=== PATIENT | male | born 1955 | race Caucasian/White ===

== ENCOUNTER 2020-06-17 11:31 | Emergency (ER) | payer OTHER ==
[2020-06-17] MEDS ORDERED: KETOROLAC TROMETHAMINE INJ/PF 30 MG/1 ML SDV IV ONE (11:59)
[2020-06-17] MEDS ORDERED: MORPHINE SULFATE 10 MG/ML INJ IV ONE (11:59)
[2020-06-17] MEDS ORDERED: ONDANSETRON 4 MG TAB.RAPDIS PO ONE (11:59)
[2020-06-17] MEDS ORDERED: NORMAL SALINE 1000 ML 1,000 ML IV ONE (12:25)
[2020-06-17 12:45] LABS: ABSOLUTE LYMPHOCYTES (AUTO) 0.6 10^3/uL (0.5-4.7); ABSOLUTE MONOCYTES (AUTO) 0.4 10^3/uL (0.1-1.4); ABSOLUTE NEUT (AUTO) 4.8 10^3/uL (1.7-8.2); BASOPHILS % (AUTO) 0.5 % (0-2); EOSINOPHILS % (AUTO) 0.1 % (0-6); HEMATOCRIT 43.6 % (37.9-51.0); HEMOGLOBIN 14.9 g/dL (13.5-17.0); LYMPHOCYTES % (AUTO) 9.6 % (13-45); MEAN CORPUSCULAR HEMOGLOBIN 30.6 pg (27.0-33.4); MEAN CORPUSCULAR HGB CONC 34.3 g/dL (32.0-36.0); MEAN CORPUSCULAR VOLUME 89 fl (80-97); MONOCYTES % (AUTO) 6.8 % (3-13); PLATELET COUNT 127 10^3/uL (150-450); RED BLOOD COUNT 4.88 10^6/uL (4.35-5.55); RED CELL DISTRIBUTION WIDTH 13.7 % (11.5-14.0); TOTAL CELLS COUNTED % (AUTO) 100 %; WHITE BLOOD COUNT 5.8 10^3/uL (4.0-10.5)
[2020-06-17 13:04] LABS: ALKALINE PHOSPHATASE 60 U/L (38-126); ANION GAP 10 (5-19); ASPARTATE AMINO TRANSFERASE 46 U/L (17-59); BILIRUBIN,DIRECT 0.3 mg/dL (0.0-0.4); BILIRUBIN,TOTAL 0.7 mg/dL (0.2-1.3); BLOOD UREA NITROGEN 20 mg/dL (7-20); CALCIUM 8.7 mg/dL (8.4-10.2); CARBON DIOXIDE 23 mmol/L (22-30); CHLORIDE 99 mmol/L (98-107); GLUCOSE 110 mg/dL (75-110); POTASSIUM 4.7 mmol/L (3.6-5.0); TOTAL PROTEIN 6.4 g/dL (6.3-8.2)
[2020-06-17 13:35] LABS: APPEARANCE,URINE CLEAR; BILIRUBIN,URINE NEGATIVE (NEGATIVE); COLOR,URINE YELLOW; GLUCOSE, URINE NEGATIVE (NEGATIVE); KETONES,URINE NEGATIVE (NEGATIVE); PROTEIN,URINE NEGATIVE (NEGATIVE); UROBILINOGEN,URINE NEGATIVE mg/dL (<2.0)
--- NOTE | 2020-06-17 14:18 | RADIOLOGY REPORT (SQ) ---
EXAM DESCRIPTION: CT ABD/PELVIS WITH IV ONLY IMAGES COMPLETED DATE/TIME: 06/17/2020 1:42 pm REASON FOR STUDY: lbp COMPARISON: None. TECHNIQUE: CT scan of the abdomen and pelvis performed using helical scanning technique with dynamic intravenous contrast injection. No oral contrast. Images reviewed with lung, soft tissue, and bone windows. Reconstructed coronal and sagittal MPR images reviewed. Delayed images for evaluation of the urinary system also acquired. All images stored on PACS. All CT scanners at this facility use dose modulation, iterative reconstruction, and/or weight based d osing when appropriate to reduce radiation dose to as low as reasonably achievable (ALARA). [facility]: Dose Right [facility]: CareDose [facility]: Dose Right [facility]: Teradose 4D [facility]: [employer] CONTRAST TYPE AND DOSE: Contrast/concentration: Isovue 350.00 mmol/ml; Total Contrast Delivered: 100 .0 ml; Total Saline Delivered: 72.0 ml RENAL FUNCTION: Creatinine 1.13 milligrams/deciliter. RADIATION DOSE: CT Rad equipment meets quality standard of care and radiation dose reduction techniq ues were employed. CTDIvol: NaN mGy. DLP: 0 mGy-cm. LIMITATIONS: None. FINDINGS: LOWER CHEST: No acute findings. LIVER: The relative hypoattenuation of the hepatic parenchyma compared to the splenic parenchyma on t he portal venous phase is suggestive of underlying hepatic steatosis. There is a 2.1 x 1.7 cm hypode nse lesion in the hepatic dome (image 9 of series 3) that is isodense to the hepatic parenchyma on th e delayed phase. The portal veins are patent. SPLEEN: No splenomegaly or splenic mass. PANCREAS: No acute gross abnormality of the pancreas. GALLBLADDER: No abnormality that is apparent on CT. ADRENAL GLANDS: No mass or asymmetry. RIGHT KIDNEY AND URETER: No solid mass, hydronephrosis, nephrolithiasis, hydroureter or ureterolithi asis. LEFT KIDNEY AND URETER: The subcentimeter hypodense lesions in the upper and lower poles of the kidne ys are considered too small to characterize. There is no hydronephrosis, nephrolithiasis, hydrourete r or ureterolithiasis. AORTA AND VESSELS: No aneurysm of the abdominal aorta. The abdominopelvic vasculature is patent. RETROPERITONEUM: No retroperitoneal adenopathy, hemorrhage or mass. BOWEL AND PERITONEAL CAVITY: Colonic diverticulosis without diverticulitis. There is no bowel obstru ction, bowel wall thickening or pericolonic/ perienteric inflammation. There is no mesenteric adenop athy, free intraperitoneal fluid or mesenteric/ omental inflammation. APPENDIX: Normal. PELVIS: No abnormality of the urinary bladder. The prostate gland measures 4.9 cm in transverse diam eter. ABDOMINAL WALL: No abdominal wall mass or hernia. BONES: Degenerative spondylosis and facet arthropathy of the lumbar spine. OTHER: No other finding. IMPRESSION: 1. No acute intra-abdominal abnormality. 2. 2.1 x 1.1 cm hypodense lesion in hepatic dome (image 9 of series 3) that is isodense of hepatic p arenchyma on the delayed phase. Consider further evaluation of the lesion with a non-emergent contra st-enhanced liver protocol MRI or CT. 3. Colonic diverticulosis without diverticulitis. 4. Hepatic steatosis. TECHNICAL DOCUMENTATION: JOB ID: [id number] Quality ID # [id number]: Final reports with documentation of one or more dose reduction techniques (e.g., Au tomated exposure control, adjustment of the mA and/or kV according to patient size, use of iterative reconstruction technique) 2010 [employer]- All Rights Reserved Reading location - IP/workstation name: [email or web address]
[2020-06-17 14:48] VITALS: BP 142/70
--- NOTE | 2020-06-17 14:49 | ER Document Report ---
ED General - General Chief Complaint: Low Back Pain Stated Complaint: CHILLS,BACK PAIN Time Seen by Provider: 06/17/20 11:48 Mode of Arrival: Ambulatory Information source: Patient - HPI Notes: Patient comes in complaining of bilateral lower back pain. He states when he went to bed he felt fine when he woke up he had this severe pain. The made it better or worse. It was sharp. It radiated across both sides of his back.. It was constant. He denies any trouble with stool or urine. No fevers. No vomiting. He denies previous history of similar pain. No history of kidney stones. He states he is here visiting from [place]. - Related Data Allergies/Adverse Reactions: No Known Allergies Allergy (Unverified 06/17/20 12:08) Past Medical History - General Information source: Patient - Social History Smoking Status: Current Every Day Smoker Frequency of alcohol use: Occasional Drug Abuse: None Family History: Reviewed & Not Pertinent Pulmonary Medical History: Reports: Hx COPD Past Surgical History: Reports: Hx Orthopedic Surgery - spinal disk removal Review of Systems - Review of Systems Constitutional: denies: Chills, Fever Cardiovascular: denies: Chest pain, Palpitations Respiratory: denies: Cough, Short of breath -: Yes All other systems reviewed and negative Physical Exam - Vital signs Vitals: Temp Pulse Resp BP Pulse Ox 99.8 F 85 18 152/70 H 97 06/17/20 11:44 06/17/20 11:44 06/17/20 11:44 06/17/20 11:44 06/17/20 11:44 Interpretation: Hypertensive - General General appearance: Appears well, Alert - HEENT Head: Normocephalic, Atraumatic Eyes: Normal Pupils: PERRL - Respiratory Respiratory status: No respiratory distress Chest status: Nontender Breath sounds: Normal Chest palpation: Normal - Cardiovascular Rhythm: Regular Heart sounds: Normal auscultation Murmur: No - Abdominal Inspection: Normal Distension: No distension Bowel sounds: Normal Tenderness: Nontender Organomegaly: No organomegaly - Back Back: Normal, Nontender - Extremities General upper extremity: Normal inspection, Nontender, Normal color, Normal ROM, Normal temperature General lower extremity: Normal inspection, Nontender, Normal color, Normal ROM, Normal temperature, Normal weight bearing. No: Cassie's sign - Neurological Neuro grossly intact: Yes Cognition: Normal Orientation: AAOx4 Margaret Coma Scale Eye Opening: Spontaneous Chilton Coma Scale Verbal: Oriented Margaret Coma Scale Motor: Obeys Commands Margaret Coma Scale Total: 15 Speech: Normal Motor strength normal: LUE, RUE, LLE, RLE Sensory: Normal - Psychological Associated symptoms: Normal affect, Normal mood - Skin Skin Temperature: Warm Skin Moisture: Dry Skin Color: Normal Course - Re-evaluation Re-evalutation: 06/17/20 14:46 Patient presents with bilateral low back pain. He states now at approximately 2:45 PM that it is better and he feels back to his normal state of health. He does have some blood in his urine which seems that he may have passed a kidney stone. CT scan does not show any evidence of a kidney stone but is possible patient passed. There is no other significant findings on labs or imaging to explain the patient's pain. His vital signs are stable and he is nontoxic- appearing. I did discuss the liver lesion that was seen on CT scan with the patient. And have provided him with guidance about appropriate follow-up for this lesion. - Vital Signs Vital signs: Temp Pulse Resp BP Pulse Ox 98.7 F 88 16 142/70 H 100 06/17/20 14:48 06/17/20 14:48 06/17/20 14:48 06/17/20 14:48 06/17/20 14:48 - Laboratory Result Diagrams: 06/17/20 12:35 06/17/20 12:35 Laboratory results interpreted by me: 06/17/20 06/17/20 06/17/20 12:35 12:35 13:15 Plt Count 127 L Lymph % (Auto) 9.6 L Seg Neutrophils % 83.0 H Sodium 131.5 L Urine Blood MODERATE H - Diagnostic Test Radiology reviewed: Image reviewed, Reports reviewed Discharge - Discharge Clinical Impression: Low back pain Qualifiers: Chronicity: acute Back pain laterality: bilateral Sciatica presence: without sciatica Qualified Code(s): M54.5 - Low back pain Hematuria Qualifiers: Hematuria type: other microscopic Qualified Code(s): R31.29 - Other microscopic hematuria Condition: Stable Disposition: HOME, SELF-CARE Instructions: Hematuria ([facility]), Low Back Pain ([facility]) Additional Instructions: There was a lesion seen on your liver on the CAT scan. You will require further testing to evaluate this lesion. Please discuss this with your family physician as soon as possible. Please tell your family physician that you need a liver protocol CAT scan or a liver protocol MRI.
== END 2020-06-17 14:54 | disposition home or self-care (01) ==
LOC: ER 11:31
DX: R31.29 Other microscopic hematuria (principal); M54.5 Low back pain; M54.9 Dorsalgia, unspecified; F17.200 Nicotine dependence, unspecified, uncomplicated
CPT/HCPCS: 99285; 96361; 96374; 96375; 36415; 85025; 80053; 81001; 74177; A9270; J1885; J2270; J7030; S0119

== ENCOUNTER 2020-06-17 23:52 | Emergency (ER) | payer OTHER ==
[2020-06-18] MEDS ORDERED: ACETAMINOPHEN 325 MG TABLET PO ONE ×2 (01:12→07:14)
[2020-06-18] MEDS ORDERED: MORPHINE SULFATE 10 MG/ML INJ IV ONE (01:13)
[2020-06-18] MEDS ORDERED: ONDANSETRON HCL INJ/PF 4 MG/2 ML SDV IV ONE (01:14)
[2020-06-18] MEDS ORDERED: NORMAL SALINE 1000 ML 1,000 ML IV ONE ×3 (01:14→08:10)
[2020-06-18 01:22] LABS: VENOUS BLOOD BASE EXCESS -1.7 mmol/L; VENOUS BLOOD HCO3 24.4 mmol/L (20-32); VENOUS BLOOD PCO2 46.3 mmHg (35-63); VENOUS BLOOD PH 7.34 (7.30-7.42)
[2020-06-18 01:25] LABS: ABSOLUTE LYMPHOCYTES (AUTO) 0.6 10^3/uL (0.5-4.7); ABSOLUTE MONOCYTES (AUTO) 0.4 10^3/uL (0.1-1.4); ABSOLUTE NEUT (AUTO) 5.5 10^3/uL (1.7-8.2); BASOPHILS % (AUTO) 0.5 % (0-2); HEMATOCRIT 43.7 % (37.9-51.0); HEMOGLOBIN 15.2 g/dL (13.5-17.0); LYMPHOCYTES % (AUTO) 9.2 % (13-45); MEAN CORPUSCULAR HEMOGLOBIN 31.4 pg (27.0-33.4); MEAN CORPUSCULAR HGB CONC 34.8 g/dL (32.0-36.0); MEAN CORPUSCULAR VOLUME 90 fl (80-97); MONOCYTES % (AUTO) 6.1 % (3-13); PLATELET COUNT 131 10^3/uL (150-450); RED BLOOD COUNT 4.85 10^6/uL (4.35-5.55); RED CELL DISTRIBUTION WIDTH 13.5 % (11.5-14.0); SEGMENTED NEUTROPHILS % (AUTO) 84.2 % (42-78); TOTAL CELLS COUNTED % (AUTO) 100 %; WHITE BLOOD COUNT 6.5 10^3/uL (4.0-10.5)
--- NOTE | 2020-06-18 01:30 | ER Document Report ---
ED General <AKUSHIK HUI - Last Filed: 06/18/20 07:16> <JACKIE PEÑA - Last Filed: 06/18/20 09:58> - General Chief Complaint: Back Pain Stated Complaint: BACK AND LEG PAIN Time Seen by Provider: 06/18/20 01:02 Notes: Patient is a 65-year-old male that comes emergency department for chief complaint of sharp pain in his lower back that radiates into his hamstrings. He states that he woke up this morning with severe pain although he started noticing pain developing before he went to bed last night. Patient denies fever but reports some chills, on arrival he was found to have a fever 102.3 F. Patient does have a cough but he states he "thought it was normal because it is a smoker's cough". Patient denies injury to his back, nausea, vomiting, abdominal pain, incontinence, or numbness. He denies history of IV drug abuse. He does have a history of lumbar discectomy in his lower back years ago after herniated discs, has a history of COPD, continues to smoke daily, denies any past medical history otherwise. He does report he is visiting here from [place], denies any sick contacts. (KAUSHIK HUI) - Related Data Allergies/Adverse Reactions: No Known Allergies Allergy (Unverified 06/17/20 12:08) Past Medical History - General Information source: Patient - Social History Smoking Status: Current Every Day Smoker Frequency of alcohol use: None Drug Abuse: None Lives with: Alone Family History: Reviewed & Not Pertinent Patient has homicidal ideation: No Pulmonary Medical History: Reports: Hx COPD Past Surgical History: Reports: Hx Orthopedic Surgery - spinal disk removal - Immunizations Hx Diphtheria, Pertussis, Tetanus Vaccination: Yes <KAUSHIK HUI - Last Filed: 06/18/20 07:16> Review of Systems - Review of Systems Constitutional: See HPI EENT: No symptoms reported Cardiovascular: No symptoms reported Respiratory: See HPI Gastrointestinal: No symptoms reported Genitourinary: No symptoms reported Male Genitourinary: No symptoms reported Musculoskeletal: See HPI Skin: No symptoms reported Hematologic/Lymphatic: No symptoms reported Neurological/Psychological: No symptoms reported <KAUSHIK HUI - Last Filed: 06/18/20 07:16> Physical Exam <KAUSHIK HUI - Last Filed: 06/18/20 07:16> - Vital signs Vitals: Temp Pulse Resp BP Pulse Ox 102.3 F H 81 22 H 131/56 H 96 06/18/20 00:06 06/18/20 00:06 06/18/20 00:06 06/18/20 00:06 06/18/20 00:06 - Notes Notes: GENERAL: Alert and interactive, somewhat ill-appearing, flushed and mildly diaphoretic HEAD: Normocephalic, atraumatic. EYES: Pupils equal, round, and reactive to light. Extraocular movements intact. ENT: Oral mucosa moist, tongue midline. Oropharynx unremarkable. Airway patent. NECK: Full range of motion. Supple. Trachea midline. No lymphadenopathy. LUNGS: Slightly decreased breath sounds bilaterally, coarse breath sounds throughout, however patient is not wheezing, speaks in full sentences, no signs of respiratory distress. HEART: Regular rate and rhythm. No murmur ABDOMEN: Soft, non-tender. Non-distended. GENITOURINARY: No swelling, tenderness, or concerning findings EXTREMITIES: Moves all 4 extremities spontaneously. No edema, normal radial and dorsalis pedis pulses bilaterally. No cyanosis. BACK: Patient has generalized tenderness over the lower back, difficult to evaluate because I cannot get patient in a good position to do so, patient has severe pain with any movement of his legs and with any movement of his back. Normal distal neurovascular exam, no saddle anesthesia, no obvious signs of trauma. NEUROLOGICAL: Alert and oriented x3. Normal speech. Cranial nerves II through XII grossly intact. Strength 5/5 in all extremities. PSYCH: Normal affect, normal mood. SKIN: Flushed and mildly diaphoretic (KAUSHIK HUI) Course - Laboratory Result Diagrams: 06/18/20 01:02 06/18/20 01:02 <KAUSHIK HUI - Last Filed: 06/18/20 07:16> - Laboratory Result Diagrams: 06/18/20 01:02 06/18/20 01:02 <JACKIE PEÑA - Last Filed: 06/18/20 09:58> - Re-evaluation Re-evalutation: On exam patient is alert and cooperative but with any movement whatsoever including trying to flex the back, trying to lift or bend his legs, or trying to change position patient appears to have intense pain that makes him pale. In addition to this patient is febrile. Patient was evaluated earlier and had a CT that was negative, had negative laboratory work-up for the most part, no acute findings. Patient does not have a history of IV drug abuse, he has no evidence of IV injection sites on exam. Patient does not have any symptoms or physical exam findings suggesting spinal cord compression. However based on his exam alone and based on his history of discectomy in the past I am concerned that patient has discitis on initial impression. Patient will be treated for fever, medicated for pain, placed on monitor, and have full septic work-up including added ESR and CRP. CBC unremarkable, ESR is not elevated, chemistry nonspecific with mildly elevated creatinine and LFTs. CRP is very elevated at greater than 140. Lactic is unremarkable, venous blood gas unremarkable, blood and urine cultures are pending. On reevaluation patient still has a very significant discomfort, will give additional pain medication. We do not have MRI at this time but we will in the morning, I discussed with patient, I discussed my concern, patient will be covered with broad-spectrum antibiotics and MRI will be placed to be performed in several hours in the morning. Patient states appreciation and agreement. I discussed case with Dr. Desir. 06/18/20 05:40 Patient reevaluated, he is much more comfortable after the second pain medication dose, he states he is reasonably comfortable at this time although his back still hurts. 06/18/20 07:16 On reevaluation patient noted to be having shaking chills although his temperature has not changed. He is now mildly tachycardic. Remedicated with Tylenol and fentanyl. Afterwards he will will be able to go over the MRI, spoke with ultrasound technician. (KAUSHIK HUI) 06/18/20 09:52 MRI results are unremarkable. I discussed this with Dr. Mcginnis. I then reevaluated the patient and asked him if he had dysuria. He said that he did. I suspect that he has a urinary tract infection. He does have a large amount of blood in his urine. Urine culture has been sent. Patient states that he will follow-up with his primary care provider in [place]. Since the patient is from [place], he will be tested for COVID-19. The patient was evaluated during the global COVID-19 pandemic and that diagnosis was suspected/considered upon their initial presentation. Their evaluation, treatment and testing was consistent with current guidelines for patients who present with complaints or symptoms that may be related to COVID-19. Follow-up precautions were given. Verbal discharge instructions were given to the patient. They verbalized u nderstanding. They are stable for discharge. (JACKIE PEÑA) - Vital Signs Vital signs: Temp Pulse Resp BP Pulse Ox 98.3 F 67 21 H 126/65 H 93 06/18/20 08:00 06/18/20 06:44 06/18/20 09:01 06/18/20 09:00 06/18/20 09:01 - Laboratory Laboratory results interpreted by me: 06/18/20 06/18/20 06/18/20 01:02 01:02 02:54 Plt Count 131 L Lymph % (Auto) 9.2 L Seg Neutrophils % 84.2 H Sodium 133.3 L Chloride 97 L Creatinine 1.26 H Est GFR (MDRD) Non-Af 58 L Direct Bilirubin 0.5 H AST 136 H ALT 57 H C-Reactive Protein 141.2 H Urine Protein 30 H Urine Ketones TRACE H Urine Blood LARGE H - EKG Interpretation by Me Additional EKG results interpreted by me: EKG shows sinus rhythm at a rate of 82, QTc 421, normal axis, no T wave inversions or ST segment changes in consecutive leads (KAUSHIK HUI) Discharge <KAUSHIK HUI - Last Filed: 06/18/20 07:16> <JACKIE PEÑA - Last Filed: 06/18/20 09:58> - Discharge Clinical Impression: Suspected COVID-19 virus infection Low back pain Qualifiers: Chronicity: acute Back pain laterality: midline Sciatica presence: unspecified whether sciatica present Qualified Code(s): M54.5 - Low back pain Hematuria Qualifiers: Hematuria type: gross Qualified Code(s): R31.0 - Gross hematuria Urinary tract infection Qualifiers: Urinary tract infection type: site unspecified Hematuria presence: with hematuria Qualified Code(s): N39.0 - Urinary tract infection, site not specified; R31.9 - Hematuria, unspecified Condition: Stable Disposition: HOME, SELF-CARE Instructions: Urinary Tract Infection ([facility]), COVID-19 Guidance for Persons Under Investigation Additional Instructions: You were seen today in the emergency department for back pain and a fever. You are being tested for COVID-19. The health department will call you with your results. You are being treated for a urinary tract infection also. Please make sure you take all your antibiotics as prescribed. Your MRI was very reassuring and it did not show anything acutely wrong. Please follow-up with your primary care provider when you return to [place]. Prescriptions: Cephalexin [Keflex] 500 mg PO BID #14 capsule Oxycodone HCl/Acetaminophen [Percocet 5-325 mg Tablet] 1 - 2 tab PO Q4H PRN #10 tablet PRN Reason:
[2020-06-18 01:43] LABS: ALBUMIN 4.4 g/dL (3.5-5.0); ALKALINE PHOSPHATASE 60 U/L (38-126); ANION GAP 11 (5-19); ASPARTATE AMINO TRANSFERASE 136 U/L (17-59); BILIRUBIN,DIRECT 0.5 mg/dL (0.0-0.4); BILIRUBIN,TOTAL 1.1 mg/dL (0.2-1.3); BLOOD UREA NITROGEN 20 mg/dL (7-20); CALCIUM 8.8 mg/dL (8.4-10.2); CARBON DIOXIDE 25 mmol/L (22-30); CHLORIDE 97 mmol/L (98-107); GLUCOSE 110 mg/dL (75-110); POTASSIUM 4.3 mmol/L (3.6-5.0)
[2020-06-18 01:54] LABS: C-REACTIVE PROTEIN 141.2 mg/L (<10.0)
[2020-06-18 02:02] LABS: ERYTHROCYTE SEDIMENTATION RATE 19 mm/hr (0-20)
[2020-06-18] MEDS ORDERED: HYDROMORPHONE HCL INJ/PF 2 MG/ML AMPULE IV ONE (02:04)
--- NOTE | 2020-06-18 02:18 | RADIOLOGY REPORT (SQ) ---
EXAM DESCRIPTION: XR CHEST 1 VIEW COMPLETED DATE/TME: 06/18/2020 01:13 CLINICAL HISTORY: 65 years, Male, fever, cough COMPARISON: None. NUMBER OF VIEWS: One TECHNIQUE: Upright AP view chest LIMITATIONS: None. FINDINGS: The lungs are clear. The heart is normal in size. No pneumothorax or pleural effusion. No intraperitoneal free air. Bones are unremarkable. IMPRESSION: No acute cardiopulmonary abnormality copyright 2010 [employer]- All Rights Reserved
[2020-06-18] MEDS ORDERED: VANCOMYCIN HCL INJ 1000 MG VIAL IV ONE (03:05)
[2020-06-18] MEDS ORDERED: PIPERACILLIN/TAZOBACTAM 3.375 GM VIAL IV ONE (03:05)
[2020-06-18 04:33] LABS: APPEARANCE,URINE TURBID; BILIRUBIN,URINE NEGATIVE (NEGATIVE); COLOR,URINE AMBER; GLUCOSE, URINE NEGATIVE (NEGATIVE); KETONES,URINE TRACE mg/dL (NEGATIVE); PROTEIN,URINE 30 mg/dL (NEGATIVE); UROBILINOGEN,URINE NEGATIVE mg/dL (<2.0)
[2020-06-18] MEDS ORDERED: FENTANYL CITRATE INJ/PF 100 MCG/2 ML AMPUL IV ONE (07:14)
[2020-06-18] MEDS ORDERED: PIPERACILLIN/TAZOBACTAM 3.375 GM VIAL IV SCH (08:15)
--- NOTE | 2020-06-18 09:16 | RADIOLOGY REPORT (SQ) ---
EXAM DESCRIPTION: MRI THORACIC SPINE COMBO IMAGES COMPLETED DATE/TIME: 06/18/2020 8:32 am REASON FOR STUDY: Severe back pain, fever, history lumbar surgery COMPARISON: None. TECHNIQUE: Sagittal and Axial imaging includes T1, T2, STIR and gradient echo sequences. T1 post ga dolinium sequences. CONTRAST TYPE AND DOSE: 20 mL Prohance. RENAL FUNCTION: Not indicated. ACR Type II contrast agent associated with few, if any, unconfounded cases of NSF LIMITATIONS: Motion artifact. FINDINGS: Study is limited by motion. No evidence of epidural fluid collection. Cord signal is nor mal. Mild degenerative disc disease. No evidence of acute disc herniation. Marrow signal is normal . No evidence of compression fracture. IMPRESSION: No acute findings. TECHNICAL DOCUMENTATION: JOB ID: [id number] 2010 [employer]- All Rights Reserved Reading location - IP/workstation name: [email or web address]
--- NOTE | 2020-06-18 09:20 | RADIOLOGY REPORT (SQ) ---
EXAM DESCRIPTION: MRI LUMBAR SPINE COMBO IMAGES COMPLETED DATE/TIME: 06/18/2020 8:32 am REASON FOR STUDY: Severe back pain, fever, history lumbar surgery COMPARISON: None. TECHNIQUE: Sagittal and Axial imaging includes T1, T1 post gadolinium, T2, STIR and gradient echo se quences. Coronal T2/HASTE imaging. CONTRAST TYPE AND DOSE: 20 mL Prohance. RENAL FUNCTION: Not indicated. ACR Type II contrast agent associated with few, if any, unconfounded cases of NSF LIMITATIONS: Motion artifact. FINDINGS: Study is limited by motion. No evidence of epidural fluid collection. Cord signal is nor mal. Spondylosis and facet arthropathy status post right laminectomy at L4-5. No evidence of high-g rade stenosis or acute disc herniation. Marrow signal is normal. No evidence of compression fracture. IMPRESSION: No acute findings. TECHNICAL DOCUMENTATION: JOB ID: [id number] 2010 [employer]- All Rights Reserved Reading location - IP/workstation name: [email or web address]
[2020-06-18] MEDS ORDERED: OXYCODONE-ACETAMINOPHEN 5-325 MG TABLET PO ONE (09:49)
[2020-06-18 10:16] VITALS: BP 119/58
--- NOTE | 2020-06-18 12:44 | EKG REPORT ---
SEVERITY:- NORMAL ECG - SINUS RHYTHM : Confirmed by: Zeke Chan MD 18-Jun-2020 12:43:45
== END 2020-06-18 10:26 | disposition home or self-care (01) ==
LOC: ER 23:52
DX: M47.816 Spondylosis without myelopathy or radiculopathy, lumbar region (principal); N39.0 Urinary tract infection, site not specified; R31.0 Gross hematuria; M54.5 Low back pain; R50.9 Fever, unspecified; R00.0 Tachycardia, unspecified; J44.9 Chronic obstructive pulmonary disease, unspecified; R05 Cough; F17.200 Nicotine dependence, unspecified, uncomplicated; Z98.890 Other specified postprocedural states; Z20.828 Contact with and (suspected) exposure to other viral communicable diseases; R79.89 Other specified abnormal findings of blood chemistry
CPT/HCPCS: 93005; 99285; 96361; 96375; 96365; 96366; 96367; 96368; 36415; 87040; 87086; 83605; 85025; 85652; 87635; 86140; 87077; 80053; 81001; 84484; 82803; 72157; 72158; 71045; 93010; A9576; J3010; J2270; J1170; J2405; J7030; J3370; J2543; C9803